=== PATIENT | male | born 1985 | race African-American/Black ===

== ENCOUNTER 2024-04-23 01:36 | Emergency (ER) | payer MEDICAID, OTHER ==
[~2024-04-23] VITALS: Ht 182.9 cm; Wt 95.4 kg
[~2024-04-23 01:36] MED LIST: HYDR-1421
[2024-04-23] MEDS: InsuLIN REG 1unit/0.01ml Soln (100units/ml) SC ONE (02:27)
[2024-04-23] MEDS ORDERED: EMPA1TAB PO (04:18)
--- NOTE | 2024-04-23 04:18 | ED.PDOC ---
History of present illness HPI Comments Pt presents to ED requesting refill of Jardiance. Pt says he ran out 3 days ago, and has tried to get appt for refill but was told next appt is not until 05/13. Pt says his blood sugars have been increasing as of yesterday, says sugars were in 300s at home and has been trying to drink more water and exercise. Pt BGL in triage is 508, repeat 466. Pt denies all symptoms, denies SOB, n/v, abd pain, RIVERS, CP. Pt denies all pain. All VSS, no s/sx distress Chief Complaint: Diabetes Time Seen by MD: 01:40 Primary Care Provider: CASPER History of present illness: Nurses Notes, Medications, Allergies Allergies: Coded Allergies: NO KNOWN ALLERGIES (Unverified , 07/10/09) Home Meds Reported Medications Hydrocodone-Acetaminophen (Vicodin) 1 Tab Tab, BID 02/21/12 Discontinued Scripts Empagliflozin (Jardiance) 10 Mg Tab, 10 MG PO DAILY for 14 Days, #14 TAB Prov:SVETLANA [facility] 04/23/24 Information Source: Patient Mode of Arrival: Ambulatory Past Medical History PAST MEDICAL HISTORY: Denies Surgical History: Denies all surgeries Family History Family History: No family hx of DM, Unobtainable Social History Smoker: Cigarettes Alcohol: Rarely Drugs: Denies Drug Use Lives In: Home Constitutional: denies: chills, diaphoresis, fatigue, fever, malaise, sweats, weakness, others EENTM: denies: blurred vision, double vision, ear bleeding, ear discharge, ear drainage, ear pain, ear ringing, eye pain, eye redness, hearing loss, mouth pain, mouth swelling, nasal discharge, nose bleeding, nose congestion, nose pain, photophobia, tearing, throat pain, throat swelling, voice changes, others Respiratory: denies: cough, hemoptysis, orthopnea, SOB at rest, shortness of breath, SOB with excertion, stridor, wheezing, others Cardiovascular: denies: chest pain, dizzy spells, diaphoresis, Dyspnea on exertion, edema, irregular heart beat, left arm pain, lightheadedness, palpitations, PND, syncope, others Gastrointestinal: denies: abdomen distended, abdominal pain, blood streaked bowels, constipated, diarrhea, dysphagia, difficulty swallowing, hematemesis, melena, nausea, poor appetite, poor fluid intake, rectal bleeding, rectal pain, vomiting, others Genitourinary: denies: burning, dysuria, flank pain, frequency, hematuria, incontinence, penile discharge, penile sore, pain, testicle pain, testicle swelling, urgency, others Neurological: denies: dizziness, fainting, headache, left sided numbness, left sided weakness, numbness, paresthesia, pre-existing deficit, right sided numbness, right sided weakness, seizure, speech problems, tingling, tremors, weakness, others Musculoskeletal: denies: back pain, gout, joint pain, joint swelling, muscle pain, muscle stiffness, neck pain, others Integumetry: denies: bruises, change in color, change in hair/nails, dryness, laceration, lesions, lumps, rash, wounds, others Allergic/Immunocompromised: denies: Difficulty Healing, Frequent Infections, Hives, Itching, others Hematologic/Lymphatic: denies: anemia, blood clots, easy bleeding, easy bruising, swollen glands, others Endocrine: denies: excessive hunger, excessive sweating, excessive thirst, excessive urination, flushing, intolerance to cold, intolerance to heat, unexplained weight gain, unexplained weight loss, others Psychiatric: denies: anxiety, bipolar disorder, depression, hopeless, panic disorder, schizophrenia, sleepless, suicidal, others Physical Exam General Appearance: No Apparent Distress, Normal HEENT: Normal ENT Inspection, Pharynx Normal, TMs Normal Neck: Full Range of Motion, Non-Tender, Normal, Normal Inspection Respiratory: Lungs Clear, No Respiratory Distress, Normal Breath Sounds Cardiovascular: No Edema, No JVD, No Murmur, No Gallop, Normal Peripheral Pulses, Regular Rate/Rhythm Breast Exam: Deferred Gastrointestinal: No Organomegaly, Non Tender, No Pulsatile Mass, Normal Bowel Sounds, Soft Genitalia: Deferred Pelvic: Deferred Rectal: Deferred Extremities: Normal capillary refill, Normal inspection, Normal range of motion, Non-tender, No pedal edema Musculoskeletal : Apperance: Normal Neurologic: Alert, faculty support coordinator II-XII nml as Tested, No Motor Deficits, Normal Affect, Normal Mood, No Sensory Deficits Cerebellar Function: Normal Reflexes: Normal Skin: Dry, Normal Color, Warm Lymphatic: No Adenopathy Was a procedure done? Was a procedure done?: No Differential Diagnosis (DM) Differential Diagnosis: Dehydration, Diabetic Coma, DKA, Hyperglycemia X-Ray, Labs, Meds, VS Vital Signs Date Time Temp Pulse Resp B/P (MAP) Pulse Ox O2 Delivery O2 Flow Rate FiO2 04/23/24 04:25 82 12 98 Room Air 04/23/24 04:25 98.0 82 12 114/73 (87) 98 98.0 04/23/24 02:09 98.3 96 17 117/86 (96) 97 Lab Test 04/23/24 04:08 04/23/24 01:58 04/23/24 01:57 Range/Units POC Glucose 420 *H 466 *H 508 *H 70-106 mg/dl X-Ray, Labs, Meds, VS Comment Repeat blood sugar 388. Reports no symptoms requesting discharge at this time. He has patient to increase his p.o. fluids, advised on diabetic diet and be more aggressive on his blood sugars. Refill sent to the pharmacy for Jardiance.. Advised to follow up with his PCP within 2-3 days for further refills. ER return precautions given patient agrees with discharge plan of care. Time of 1ST Reevaluation: 04:10 Reevaluation 1ST: Improved Patient Education/Counseling: Diagnosis, Treatment, Prognosis, Need For Follow Up Family Education/Counseling: No Family Present Departure 1 Departure Time of Disposition: 04:14 Impression: Primary Impression: Diabetes type 2, uncontrolled Qualified Codes: E11.65 - Type 2 diabetes mellitus with hyperglycemia Disposition: 01 HOME / SELF CARE / HOMELESS Condition: Stable Discharged With: Self Critical Care Note Critical Care Time?: No Stability Stability form required: SVETLANA [place] Apr 23, 2024 04:18
[2024-04-23 04:25] VITALS: BP 114/73; PULSE 82; RESP 12; TEMP 98; O2SAT 98
== END 2024-04-23 04:25 | disposition home or self-care (01) ==
LOC: ER 01:36
DX: E11.65 Type 2 diabetes mellitus with hyperglycemia (principal); F17.210 Nicotine dependence, cigarettes, uncomplicated; Z79.84 Long term (current) use of oral hypoglycemic drugs
CPT/HCPCS: 82962; 96372; 99283; J1815